=== PATIENT | female | born 1960 | race Two or more races ===

== ENCOUNTER 2024-06-25 19:34 | Emergency (ER) | payer OTHER ==
[~2024-06-25] VITALS: Ht 167.6 cm; Wt 65.8 kg
[2024-06-25 19:44] VITALS: BP 150/80; O2SAT 98
[2024-06-25] MEDS ORDERED: TETANUS & DIPHTHERIA TOX,ADULT 0.5 ML VIAL IM STA (20:07)
[2024-06-25] MEDS ORDERED: CEFAZOLIN SODIUM 1,000 MG VIAL IM STA (20:07)
[2024-06-25] MEDS ORDERED: ACETAMINOPHEN 500 MG GEL..CAP PO STA (20:08)
[2024-06-25] MEDS ORDERED: ACETAMINOPHEN 500 MG GEL..CAP PO ONE (20:14)
[2024-06-25] MEDS ORDERED: CEFAZOLIN SODIUM 1,000 MG VIAL ONE (20:14)
[2024-06-25] MEDS ORDERED: TETANUS DIPHTHERIA TOX. ADSOR 5 ML VIAL IM ONE (20:14)
[2024-06-25] MEDS ORDERED: LIDOCAINE HCL 1% 10ML VIAL ONE (20:14)
== END 2024-06-25 21:04 | disposition home or self-care (01) ==
LOC: ER 19:37
DX: S01.81XA Laceration without foreign body of other part of head, initial encounter (principal); X78.8XXA Intentional self-harm by other sharp object, initial encounter; Y93.89 Activity, other specified; Y92.89 Other specified places as the place of occurrence of the external cause; Y99.9 Unspecified external cause status